=== PATIENT | male | born 1955 ===

== ENCOUNTER 2022-12-14 10:30 | Inpatient (IN) | payer OTHER ==
[~2022-12-14] VITALS: Ht 170.2 cm; Wt 67.1 kg
[2022-12-16] MEDS ORDERED: MESALAMINE800 MG (11:14)
== END 2022-12-24 13:27 | disposition home or self-care (01) | DRG 330 ==
LOC: O/R 12-16 09:08 → SURG 12-16 09:08
PROVIDERS: ADMIT Colon & Rectal Surgery; ATTEND Colon & Rectal Surgery
PROC: 0DBP0ZZ Excision of Rectum, Open Approach (ICD-10-PCS; 2022-12-16)
PROC: 0DBU0ZZ Excision of Omentum, Open Approach (ICD-10-PCS; 2022-12-16)
PROC: 0DNW0ZZ Release Peritoneum, Open Approach (ICD-10-PCS; 2022-12-16)
PROC: 0DJD8ZZ Inspection of Lower Intestinal Tract, Via Natural or Artificial Opening Endoscopic (ICD-10-PCS; 2022-12-16)
PROC: 4A1BXSH Monitoring of Gastrointestinal Vascular Perfusion using Indocyanine Green Dye, External Approach (ICD-10-PCS; 2022-12-16)
PROC: 0DTN0ZZ Resection of Sigmoid Colon, Open Approach (ICD-10-PCS; principal; 2022-12-16 11:00)
DX: K57.20 Diverticulitis of large intestine with perforation and abscess without bleeding (principal); C18.7 Malignant neoplasm of sigmoid colon; K56.51 Intestinal adhesions [bands], with partial obstruction; K91.89 Other postprocedural complications and disorders of digestive system; K56.7 Ileus, unspecified; R59.0 Localized enlarged lymph nodes; Z20.822 Contact with and (suspected) exposure to COVID-19; Z53.31 Laparoscopic surgical procedure converted to open procedure